=== PATIENT | male | born 2000 | race Caucasian/White ===

== ENCOUNTER 2022-01-25 21:40 | Emergency (ER) | payer BC ==
[2022-01-25] MEDS ORDERED: Ketorolac Tromethamine 30 MG/ML VIAL ONE (22:26)
[2022-01-25] MEDS ORDERED: Acetaminophen 500 MG TAB ONE (22:26)
== END 2022-01-25 23:12 | disposition home or self-care (01) ==
LOC: CSHERS 21:40
DX: M23.91 Unspecified internal derangement of right knee (principal)
CPT/HCPCS: 96372; J1885